=== PATIENT | female | born 1990 | race Two or more races ===

== ENCOUNTER 2016-11-17 12:14 | Emergency (ER) | payer MEDICAID ==
[~2016-11-17] VITALS: Ht 170.2 cm; Wt 64.4 kg
[2016-11-17 16:08] VITALS: BP 114/74
== END 2016-11-17 17:56 | disposition home or self-care (01) ==
LOC: ER 12:14
DX: J04.0 Acute laryngitis (principal); H10.022 Other mucopurulent conjunctivitis, left eye; M41.9 Scoliosis, unspecified
CPT/HCPCS: 71020